=== PATIENT | male | born 1950 | race American Indian/Alaskan Native ===

== ENCOUNTER 2020-07-23 12:02 | Outpatient (CLI) | payer OTHER ==
[2020-07-23 13:06] LABS: Blood Urea Nitrogen 20 mg/dL (9-20)
== END 2020-07-23 12:03 | disposition home or self-care (01) ==
LOC: CT 12:02
DX: Z01.89 Encounter for other specified special examinations (principal); R07.9 Chest pain, unspecified
CPT/HCPCS: 36415; 82565; 84520

== ENCOUNTER 2021-12-18 15:23 | Emergency (ER) | payer MEDICARE, OTHER ==
[2021-12-18 15:40] VITALS: BP 139/71
--- NOTE | 2021-12-18 16:42 | Emergency Department Report ---
ED General Adult HPI - General Chief complaint: Skin/Abscess/Foreign Body Stated complaint: POSS CYST OVER RT EYE Source: patient Mode of arrival: Ambulatory Limitations: No Limitations - History of Present Illness Initial comments: 71-year-old male presents with a cyst of the right eye. [facility] has been taking d oxycycline 100 mg twice daily for last 2-week with no improvement. Patient states that he attempted to expel that by poking foreign object into the cyst no drainage noted from it. Patient also states that he applied hot compresses without any drainage noted. Patient denies any pain from the cyst. Patient states just irritated to have a cyst in his eyebrow. Patient states he do have a [facility] . Patient is alert and oriented x3. No acute distress noted. He denies any fever chills. Denies any headache or blurred vision. - Related Data Allergies Allergy/AdvReac Type Severity Reaction Status Date / Time lisinopril Allergy COUGH Unverified 07/23/20 12:03 ED Review of Systems ROS: Stated complaint: POSS CYST OVER RT EYE Other details as noted in HPI Constitutional: denies: chills, fever Eyes: denies: eye pain, eye discharge, vision change ENT: denies: ear pain, throat pain Respiratory: denies: cough, shortness of breath, wheezing Cardiovascular: denies: chest pain, palpitations Endocrine: no symptoms reported Gastrointestinal: denies: abdominal pain, nausea, diarrhea Genitourinary: denies: urgency, dysuria Musculoskeletal: denies: back pain, joint swelling, arthralgia Skin: other (cyst). 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" [place]) Hx Congestive Heart Failure: No Hx Deep Vein Thrombosis: No Hx Pulmonary Embolism: No Hx Renal Disease: No Hx Arthritis: Yes Hx Seizures: No Hx Asthma: No Hx COPD: Yes (EMPHYSEMA) - Surgical History Hx Pacemaker: No Hx Cholecystectomy: No Hx Appendectomy: No - Social History Smoking Status: Former Smoker ED Physical Exam - General Limitations: No Limitations General appearance: alert, in no apparent distress - Head Head exam: Present: atraumatic, normocephalic - Eye Eye exam: Present: normal appearance - ENT ENT exam: Present: mucous membranes moist - Neck Neck exam: Present: normal inspection - Respiratory Respiratory exam: Present: normal lung sounds bilaterally. Absent: respiratory distress - Cardiovascular Cardiovascular Exam: Present: regular rate, normal rhythm. Absent: systolic murmur, diastolic murmur, rubs, gallop - GI/Abdominal GI/Abdominal exam: Present: soft, normal bowel sounds - Rectal Rectal exam: Present: deferred - Extremities Exam Extremities exam: Present: normal inspection - Back Exam Back exam: Present: normal inspection - Neurological Exam Neurological exam: Present: alert, oriented X3 - Psychiatric Psychiatric exam: Present: normal affect, normal mood - Skin Skin exam: Present: warm, dry, intact, normal color. Absent: rash ED Course Vital Signs 12/18/21 15:39 Temperature 98.1 F Pulse Rate 64 Respiratory 18 Rate Blood Pressure 139/71 O2 Sat by Pulse 99 Oximetry ED Medical Decision Making - Medical Decision Making 71-year-old male presents with a cyst of the right eye. [facility] and was told that it was follic[facility]itis has been taking doxycycline 100 mg twice daily for last 2-week with no improvement. Patient states that he attempted to expel that by poking foreign object into the cyst no drainage noted from it. Patient also states that he applied hot compresses without any drainage noted. Patient denies any pain from the cyst. Patient states just irritated to have a cyst in his eyebrow. Patient states he do have a [facility] . Patient is alert and oriented x3. No acute distress noted. He denies any fever chills. Denies any headache or blurred vision. Physical examination show, round mobile small nodule to the right eyebrow. No Other pertinent to examination. Discussed to keep appointment with the [facility] and to follow-up with general surgery for removal. Rechecked the patient is resting quietly quietly and comfortable and feeling better. I discussed the results of diagnostic study, my clinical impression and the plan for further treatment with the patient. Patient agrees with plan and discharge at this present time. All question addressed. I have given the patient instruction regarding a diagnosis ,expectation ,follow- up and return precaution. I explained to the patient that emergent condition may arise and to return to the ED for new worsen and any new persisting condition. I have explained the importance of following up with the primary care physician or referral physician listed below has instructed. The patient verbalized understanding of discharge instruction. Critical care attestation.: If time is entered above; I have spent that time in minutes in the direct care of this critically ill patient, excluding procedure time. ED Disposition Clinical Impression: Cyst Disposition: 01 HOME / SELF CARE / HOMELESS Is pt being admited?: No Does the pt Need Aspirin: No Condition: Stable Instructions: Skin Abscess, [id number] Additional Instructions: [facility] continue to take doxycycline as previous prescribed Referrals: PRIMARY CAREMD [Primary Care Provider] - 3-5 Days SHANTANU LOWE MD [Staff Physician] - 3-5 Days Forms: Work/School Release Form(ED)
== END 2021-12-18 16:58 | disposition home or self-care (01) ==
LOC: ED 15:23
DX: H57.89 Other specified disorders of eye and adnexa (principal); I10 Essential (primary) hypertension; M19.90 Unspecified osteoarthritis, unspecified site; J44.9 Chronic obstructive pulmonary disease, unspecified; Z87.891 Personal history of nicotine dependence; I25.2 Old myocardial infarction
CPT/HCPCS: 99281